=== PATIENT | male | born 1955 | race Caucasian/White ===

== ENCOUNTER → 2016-05-18 | Outpatient (CLI) | payer MEDICARE | LOC: RAD 13:00 | PROVIDERS: ATTEND Urology | DX: R31.9 Hematuria, unspecified (principal) | CPT/HCPCS: 76380 ==

== ENCOUNTER 2016-08-08 09:06 | Day surgery (SDC) | payer MEDICARE ==
[~2016-08-08 09:06] MED LIST: PROPOFOL INJ 200 MG/20 ML VIAL IV ONE
[2016-08-08] MEDS ORDERED: SIMETHICONE 80 MG TAB.CHEW ONE (10:22)
[2016-08-08 10:45] VITALS: BP 125/62
--- NOTE | 2016-08-08 13:42 | Operative Report ---
Operative Report DATE OF SURGERY: 08/08/16 Operative Report: The risks benefits and alternatives of the procedure explained to the patient in detail and informed consent is obtained that GIF Olympus video scope was inserted into the patient's mouth and hypopharynx the esophagus is identified intubated and insufflated the scope was then advanced through the esophagus stomach and duodenum retroflexion maneuver is done the esophagus stomach and first and second portions of the duodenum examined PREOPERATIVE DIAGNOSIS: Gastritis follow-up. Known history of Hernández's esophagus POSTOPERATIVE DIAGNOSIS: Mild esophagitis status post biopsy. Significant improvement of his gastritis biopsy obtained to rule out Helicobacter pylori OPERATION: EGD with biopsy SURGEON: CAIN RUSSELL ANESTHESIA: LMAC TISSUE REMOVED OR ALTERED: Gastric mucosal specimen obtained. Distal esophageal mucosal specimen obtained COMPLICATIONS: None. ESTIMATED BLOOD LOSS: none. INTRAOPERATIVE FINDINGS: As described above. PROCEDURE: Patient tolerated the procedure well. No immediate postprocedure complications are noted. Patient is discharged in good condition. Discharge date 08/08/2016. Discharge diet: Regular. Discharge activity: Regular. We'll await on biopsies. 2-3 week follow-up to discuss findings. Patient is instructed to call the office or proceed to the emergency room should there be any further problems or questions.
== END 2016-08-08 10:40 | disposition home or self-care (01) ==
LOC: END 09:06
PROVIDERS: ATTEND Internal Medicine Gastroenterology
PROC: 0DB58ZX Excision of Esophagus, Via Natural or Artificial Opening Endoscopic, Diagnostic (ICD-10-PCS; 2016-08-08)
PROC: 0DB68ZX Excision of Stomach, Via Natural or Artificial Opening Endoscopic, Diagnostic (ICD-10-PCS; principal; 2016-08-08 10:00)
DX: K29.30 Chronic superficial gastritis without bleeding (principal); K31.9 Disease of stomach and duodenum, unspecified; K21.0 Gastro-esophageal reflux disease with esophagitis; M19.90 Unspecified osteoarthritis, unspecified site; I10 Essential (primary) hypertension; G56.20 Lesion of ulnar nerve, unspecified upper limb; G47.30 Sleep apnea, unspecified; Z87.891 Personal history of nicotine dependence; Z88.0 Allergy status to penicillin; Z79.899 Other long term (current) drug therapy; Z79.82 Long term (current) use of aspirin; Z96.649 Presence of unspecified artificial hip joint; Z80.0 Family history of malignant neoplasm of digestive organs
CPT/HCPCS: 43239; 88342 ×2; 88305 ×2; A9270; J2704; 740

== ENCOUNTER → 2016-12-19 | Outpatient (CLI) | payer MEDICARE, OTHER ==
--- NOTE | 2016-12-19 12:38 | RADIOLOGY REPORT (SQ) ---
EXAM DESCRIPTION: CT CERVICAL SPINE WITHOUT COMPLETED DATE/TIME: 12/19/2016 9:12 am REASON FOR STUDY: CERVICALGIA (M54.2) M54.2 CERVICALGIA COMPARISON: 09/03/2010 CT cervical spine TECHNIQUE: Axial images acquired through the cervical spine without intravenous contrast. Images re viewed with lung, soft tissue and bone windows. Reconstructed coronal and sagittal MPR images review ed. Images stored on PACS. All CT scanners at this facility use dose modulation, iterative reconstruction, and/or weight based d osing when appropriate to reduce radiation dose to as low as reasonably achievable (ALARA). [facility]: Dose Right [facility]: CareDose [facility]: Dose Right [facility]: Teradose 4D [facility]: Smart Technologies RADIATION DOSE: Up-to-date CT equipment and radiation dose reduction techniques were employed. CTDIv ol: 24.4 mGy. DLP: 529 mGy-cm. mGy. LIMITATIONS: None. FINDINGS: ALIGNMENT: Anatomic. MINERALIZATION: Normal. VERTEBRAL BODIES: No fractures or dislocation. DISCS: Craniocervical junction, C1-2 are unremarkable. At C2-3, moderate posterior disc bulge and bony spurring is present partly effacing the ventral theca l sac and abutting the ventral cord without cord flattening. Borderline central canal narrowing. Th is is similar compared to 09/03/2010. No foraminal stenosis. At C3-4, patient is post fusion with hardware. Incorporated bone graft. Moderate posterior bony spu rring is present, partly effacing the ventral thecal sac and abutting the cord without cord flattenin g. Mild central canal narrowing. Moderate right, high-grade left foraminal narrowing from facet and uncovertebral hypertrophy. This is similar compared to 09/20/20172010. At C4-5, patient is post fusion with hardware. Incorporated bone graft material. Posterior disc bul ge and bony spurring right greater than left partly effaces the ventral thecal sac and abuts the righ tward ventral cord without cord flattening. High-grade bilateral foraminal narrowing from facet and uncovertebral hypertrophy. These findings are stable compared to 09/03/2010. At C5-6, broad diffuse disc bulge and bony spurring is present, partly effacing the rightward ventral thecal sac and abutting the cord without definite cord flattening. Mild central canal stenosis. Hi gh-grade bilateral foraminal narrowing right greater than left from facet and uncovertebral hypertrop hy. At C6-7, posterior disc bulge and bony spurring effaces the ventral thecal sac and abuts the cord. B orderline central canal narrowing. Moderate to high-grade bilateral foraminal narrowing from facet a nd uncovertebral hypertrophy. C7-T1, T1-2 are unremarkable. FACETS, LATERAL MASSES, POSTERIOR ELEMENTS: No fractures. No dislocation. No acute findings. HARDWARE: None in the spine. VISUALIZED RIBS: No fractures. LUNG APICES AND SOFT TISSUES: No significant or acute findings. OTHER: No other significant finding. IMPRESSION: Old prior fusion. Overall, very similar appearance compared to 09/03/2010 with multileve l central and foraminal stenosis TECHNICAL DOCUMENTATION: JOB ID: [id number] Quality ID # 436: Final reports with documentation of one or more dose reduction techniques (e.g., Au tomated exposure control, adjustment of the mA and/or kV according to patient size, use of iterative reconstruction technique) 2010 [employer]- All Rights Reserved
== END ==
LOC: RAD 08:54
PROVIDERS: ATTEND Physician Assistant
DX: M54.2 Cervicalgia (principal)
CPT/HCPCS: 72125

== ENCOUNTER → 2017-06-27 | Outpatient (CLI) | payer MEDICARE, OTHER ==
--- NOTE | 2017-06-27 11:26 | RADIOLOGY REPORT (SQ) ---
EXAM DESCRIPTION: CHEST PA/LAT COMPLETED DATE/TIME: 06/27/2017 10:13 am REASON FOR STUDY: DYSPNEA, UNSPECIFIED COMPARISON: 10/29/2014 EXAM PARAMETERS: NUMBER OF VIEWS: two views TECHNIQUE: Digital Frontal and Lateral radiographic views of the chest acquired. RADIATION DOSE: NA LIMITATIONS: none FINDINGS: LUNGS AND PLEURA: No opacities, masses or pneumothorax. No pleural effusion. MEDIASTINUM AND HILAR STRUCTURES: No masses or contour abnormalities. HEART AND VASCULAR STRUCTURES: Heart normal size. No evidence for failure. BONES: No acute findings. HARDWARE: None in the chest. OTHER: No other significant finding. IMPRESSION: NO SIGNIFICANT RADIOGRAPHIC FINDING IN THE CHEST. TECHNICAL DOCUMENTATION: JOB ID: [id number] [employer]- All Rights Reserved Reading location - IP/workstation name: [email or web address]
--- NOTE | 2017-06-27 11:26 | RADIOLOGY REPORT (SQ) ---
EXAM DESCRIPTION: NOT FOR OR FLUORO TO 1 HR COMPLETED DATE/TIME: 06/27/2017 10:09 am REASON FOR STUDY: DYSPNEA, UNSPECIFIED COMPARISON: None. TECHNIQUE: Fluoroscopy was performed centered over the diaphragms for sniff test. There is normal d iaphragmatic motion. LIMITATIONS: None. FINDINGS: Normal motion of the diaphragm. IMPRESSION: Normal sniff test. COMMENT: Fluoro time 8 seconds. TECHNICAL DOCUMENTATION: JOB ID: [id number] [employer]- All Rights Reserved Reading location - IP/workstation name: [email or web address]
--- NOTE | 2017-06-27 12:40 | RADIOLOGY REPORT (SQ) ---
EXAM DESCRIPTION: NM LUNG VENT/PERF SCAN COMPLETED DATE/TIME: 06/27/2017 11:28 am REASON FOR STUDY: DYSPNEA, UNSPECIFIED R06.00 DYSPNEA, UNSPECIFIED COMPARISON: None. RADIONUCLIDE AND DOSE: 5.4 millicuries TC-99m MAA Intravenous 32.3 millicuries TC-99m DTPA Inhaled aerosol TECHNIQUE: Eight views of the lungs acquired post ventilation of DTPA aerosol. Eight matching views of the lungs acquired following injection of MAA. LIMITATIONS: None. FINDINGS: VENTILATION: Symmetric and homogeneous distribution of DTPA aerosol during ventilatory pha se. No significant areas of photopenia. PERFUSION: Perfusion images with normal homogenous activity and no wedge-shaped or segmental defects. No ventilation-perfusion mismatches. OTHER: No other significant finding. IMPRESSION: Low probability for pulmonary embolus. TECHNICAL DOCUMENTATION: JOB ID: [id number] [employer]- All Rights Reserved Reading location - IP/workstation name: [email or web address]
== END ==
LOC: RAD 09:48
PROVIDERS: ATTEND Internal Medicine Pulmonary Disease
DX: R06.00 Dyspnea, unspecified (principal)
CPT/HCPCS: 71046; 76000; 78582; A9540; A9567; Q9969

== ENCOUNTER 2018-06-13 18:22 | Emergency (ER) | payer OTHER, MEDICARE ==
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
[2018-06-13 22:17] VITALS: BP 155/77
== END 2018-06-13 23:01 | disposition home or self-care (01) ==
LOC: ER 18:22
DX: T14.8XXA Other injury of unspecified body region, initial encounter (principal); M54.5 Low back pain; M54.2 Cervicalgia; V43.52XA Car driver injured in collision with other type car in traffic accident, initial encounter; I10 Essential (primary) hypertension; R00.1 Bradycardia, unspecified; Z98.1 Arthrodesis status
CPT/HCPCS: 72110; 72125; 99284